=== PATIENT | female | born 1960 | race Caucasian/White ===

== ENCOUNTER 2017-06-27 21:30 | Emergency (ER) | payer OTHER, MEDICAID ==
[~2017-06-27] VITALS: Ht 152.4 cm; Wt 95.0 kg
[2017-06-27 21:43] VITALS: BP 126/76; PULSE 89; RESP 16; TEMP 96.8; O2SAT 98
--- NOTE | 2017-06-27 22:02 | PD ---
HPI Chief Complaint: Injury Time Seen by Provider: 22:01 Travel History International Travel<30 days: No Contact w/Intl Traveler<30days: No Traveled to known affect area: No History of Present Illness HPI WHILE PATIENT AT A STORE, SHE SLIPPED AND FELL, TWISTING HER RIGHT ANKLE (WHICH HAD PREVIOUS SURGERY 2008) AND IT HAS BEEN PAINFUL AND SWOLLEN SINCE, 04/20, WORSE WITH MOVEMENT PFSH Social History Tobacco Use: No Allergies-Medications (Allergen,Severity, Reaction): Coded Allergies: No Known Allergies (Verified Allergy, Unknown, 06/27/17) Review of Systems Except as stated in HPI: all other systems reviewed are Neg Musculoskeletal: Positive: Pain Physical Exam Narrative GENERAL: SKIN: Warm and dry. HEAD: Atraumatic. Normocephalic. EYES: Pupils equal and round. No scleral icterus. No injection or drainage. ENT: No nasal bleeding or discharge. Mucous membranes pink and moist. NECK: Trachea midline. No JVD. CARDIOVASCULAR: Regular rate and rhythm. RESPIRATORY: No accessory muscle use. Clear to auscultation. Breath sounds equal bilaterally. GASTROINTESTINAL: Abdomen soft, non-tender, nondistended. Hepatic and splenic margins not palpable. MUSCULOSKELETAL: Extremities without clubbing, cyanosis, or edema. RIGHT LATERAL ANKLE DEFORMITY/EDEMA/ NO OPEN WOUNDS. OLD HEALED SURGICAL SCAR NOTED. NVI, WITH GOOD DORSALIS PEDIS PULSE NEUROLOGICAL: Awake and alert. No obvious cranial nerve deficits. Motor grossly within normal limits. Five out of 5 muscle strength in the arms and legs. Normal speech. PSYCHIATRIC: Appropriate mood and affect; insight and judgment normal. Data Data Last Documented VS Vital Signs Date Time Temp Pulse Resp B/P (MAP) Pulse Ox O2 Delivery O2 Flow Rate FiO2 06/27/17 21:43 96.8 89 16 126/76 (93) 98 Room Air Orders Orders Ankle, Complete ([id number]) (06/27/17 ) Splint Or Brace Apply/Monitor (06/27/17 22:57) Crutches (06/27/17 22:57) MDM Medical Decision Making Medical Screen Exam Complete: Yes Emergency Medical Condition: Yes Medical Record Reviewed: Yes Differential Diagnosis FX V DISLOCATION V ANKLE SPRAIN Narrative Course ADVISED PATIENT OF FINDINGS, HARDWARE IN PLACE BUT NEW OBLIQUE LATERAL MALLEOLAR FX WHICH WAS MINIMALLY DISPLACED. Diagnosis Primary Impression: Lateral malleolar fracture Qualified Codes: S82.64XA - Nondisplaced fracture of lateral malleolus of right fibula, initial encounter for closed fracture Referrals: Miguel Haider MD FOR FURTHER EVALUATION AND CARE Scripts Sennosides-Docusate Sodium (Anna-Colace) 8.6-50 Mg Tab 1 TAB PO BID for Constipation, #30 TAB 0 Refills Prov: Rajeev Banks MD 06/27/17 Hydrocodone-Acetaminophen (Lortab) 5-325 Mg Tab 1 TAB PO Q6H Y for PAIN, #20 TAB 0 Refills Prov: Rajeev Banks MD 06/27/17 Disposition: 01 DISCHARGE HOME Condition: Stable Rajeev Banks MD Jun 27, 2017 22:02
--- NOTE | 2017-06-27 22:51 | RADRPT ---
EXAM DATE/TIME: 06/27/2017 22:27 [facility] COMPARISON: No previous studies available for comparison. INDICATIONS : Fall. Right ankle pain. MEDICAL HISTORY : None. SURGICAL HISTORY : None. ORIF years ago ENCOUNTER: Initial ACUITY: 1 day PAIN SCORE: 6/10 LOCATION: Right lateral FINDINGS: There is lateral predominant soft tissue swelling. There is a minimally displaced, oblique distal fib ular fracture which is probably acute. Healed mid to distal shaft fracture of the right fibula. Also a healed medial malleolus fracture stat us post open reduction internal fixation. There are small, old avulsion fracture fragments of the tip of the medial malleolus. CONCLUSION: 1. There is a minimally displaced lateral malleolus fracture that is probably acute. Lateral soft tis beatriz swelling is present. 2. Old, healed distal tibia fracture and mid/distal fibula shaft fracture Thomas Vaughan MD on June 27, 2017 at 22:47 Board Certified Radiologist. This report was verified electronically.
[2017-06-27] MEDS ORDERED: HYDR-3533 PO (23:03)
[2017-06-27] MEDS ORDERED: PERI8.6T PO (23:03)
[2017-06-27] MEDS ORDERED: ONDANSETRON ODT 4 MG TAB PO ONE (23:15)
[2017-06-27] MEDS ORDERED: HYDROmorphone HCL PF 1 MG/ML VIAL IM ONE (23:15)
== END 2017-06-27 23:59 | disposition home or self-care (01) ==
LOC: NEPD 21:30
DX: S82.64XA Nondisplaced fracture of lateral malleolus of right fibula, initial encounter for closed fracture (principal); W01.0XXA Fall on same level from slipping, tripping and stumbling without subsequent striking against object, initial encounter; X50.1XXA Overexertion from prolonged static or awkward postures, initial encounter
CPT/HCPCS: 29515; 73610; 96372; 99284; E0113; J1170